=== PATIENT | male | born 1965 | race Caucasian/White ===

== ENCOUNTER 2020-12-05 14:21 | Emergency (ER) | payer OTHER ==
[~2020-12-05] VITALS: Ht 162.6 cm; Wt 74.8 kg
[2020-12-05 15:13] LABS: HEMATOCRIT 37.4 % (42.0-52.0); MCH 31.4 pg (26.0-34.0); MCHC 34.7 g/dL (28.0-37.0); MCV 90.5 fL (80.0-100.0); PLATELET COUNT 220 thou/uL (150-400); RBC 4.13 mil/uL (4.50-6.00); RDW 12.7 % (10.5-14.5); WBC 11.9 thou/uL (4.0-11.0)
[2020-12-05 15:24] LABS: ANION GAP 12 mmol/L (7-16); BUN 16 mg/dL (7-18); CALCIUM 8.2 mg/dL (8.5-10.1); CHLORIDE 101 mmol/L (98-107); CO2 25 mmol/L (21-32); GLUCOSE 223 mg/dL (74-106); POTASSIUM 3.9 mmol/L (3.5-5.1); SODIUM 138 mmol/L (136-145)
[2020-12-05 15:35] LABS: ALBUMIN 2.9 g/dL (3.4-5.0); DIRECT BILIRUBIN 0.9 mg/dL (<0.1-0.2); MAGNESIUM 1.9 mg/dL (1.8-2.4); PHOSPHORUS 2.2 mg/dL (2.6-4.7); SGOT 33 U/L (15-37); SGPT 104 U/L (16-63); TOTAL BILIRUBIN 1.3 mg/dL (0.2-1.0); TOTAL PROTEIN 6.4 g/dL (6.4-8.2); TROPONIN-I <0.06 ng/mL (<0.06)
[2020-12-05] MEDS ORDERED: NAPROSYN500 MG PO (16:54)
[2020-12-05] MEDS ORDERED: FLEXERIL PO (16:54)
[2020-12-05 17:08] VITALS: BP 98/65
[2020-12-05 17:12] LABS: ABSOLUTE NEUTROPHILS 9.9 thou/uL (1.4-8.2); ATYPICAL LYMPHS 1 %
--- NOTE | 2020-12-06 07:45 | EKG ---
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
== END 2020-12-05 17:09 | disposition home or self-care (01) ==
LOC: ER 14:21
PROVIDERS: Emergency Medicine
DX: M54.6 Pain in thoracic spine (principal); R68.83 Chills (without fever)